=== PATIENT | female | born 1990 | race Two or more races ===

== ENCOUNTER 2022-03-02 04:48 | Day surgery (SDC) | payer OTHER ==
[2022-02-28 13:42] VITALS: BMI 19.6
[2022-03-02] MEDS ORDERED: LIDOCAINE HCL/PF 1% SDV 5ML VIAL ONE (07:34)
[2022-03-02] MEDS ORDERED: DEXAMETHASONE SOD PHOSPHATE 10 MG/1 ML VIAL ONE (07:34)
[2022-03-02] MEDS ORDERED: IOHEXOL 180 MG/1 ML ML IJ ONE (09:48)
[2022-03-02] MEDS ORDERED: LIDOCAINE HCL 1% PRESERVATIVE FREE - 30ML VIAL IJ ONE (09:48)
[2022-03-02] MEDS ORDERED: DEXAMETHASONE SOD PHOSPHATE 10 MG/1 ML VIAL IM ONE (09:48)
[2022-03-02 10:40] VITALS: BP 101/68; PULSE 67; TEMP 98.8
== END 2022-03-02 10:35 | disposition home or self-care (01) ==
LOC: JASU-SURG 04:48
PROVIDERS: ATTEND Pain Medicine Pain Medicine
PROC: 3E0R33Z Introduction of Anti-inflammatory into Spinal Canal, Percutaneous Approach (ICD-10-PCS; 2022-03-02)
PROC: 3E0R3BZ Introduction of Anesthetic Agent into Spinal Canal, Percutaneous Approach (ICD-10-PCS; principal; 2022-03-02 08:45)
DX: M54.16 Radiculopathy, lumbar region (principal)
CPT/HCPCS: 76000-TC-FY; 81025; J1100

== ENCOUNTER 2023-09-07 11:40 | Inpatient (IN) | payer OTHER ==
[2023-09-07] MEDS: ELECTROLYTE-148 SOLN 1,000 ML IV SCH (12:45)
[2023-09-07 12:51] VITALS: BMI 22.8
[2023-09-07] MEDS: CITRIC ACID/SODIUM CITRATE 30 ML UNIT-DOSE CUP PO ONE (13:30)
[2023-09-07] MEDS ORDERED: OXYTOCIN 30 UNITS in 0.9% NS 30 UNIT/500 ML INFUS.BAG IVPB ONE (13:43)
[2023-09-07] MEDS ORDERED: FENTANYL CITRATE/PF 50 MCG/ML VIAL ONE (13:45)
[2023-09-07] MEDS ORDERED: morphine SULFATE/PF 1 MG/2 ML (2cc Syringe - QUVA) ONE (13:45)
[2023-09-07] MEDS ORDERED: IBUPROFEN 600 MG TABLET (FP) PO PRN (13:51)
[2023-09-07] MEDS ORDERED: ACETAMINOPHEN 325 MG TABLET (FP) PO PRN (13:51)
[2023-09-07] MEDS ORDERED: PHENYLEPHRINE HCL 10 MG/1 ML SINGLE DOSE VIAL ONE (14:07)
[2023-09-07] MEDS ORDERED: ceFAZolin SODIUM 1 GM VIAL ONE ×2 (14:12)
[2023-09-07] MEDS ORDERED: ONDANSETRON 4 MG/2 ML VIAL ONE ×2 (14:12)
[2023-09-07 14:26] LABS: BASO % 0.7 % (0-2.0); EOS % 0.5 % (0-4.5); HEMATOCRIT 32.9 % (32.4-45.2); HEMOGLOBIN 11.3 GM/dL (10.7-15.3); LYMPH % 12.5 % (8-40); MCH 30.6 pg (25.7-33.7); MCHC 34.2 g/dl (32.0-36.0); MEAN CELL VOLUME 89.4 fl (80-96); MEAN PLT VOLUME 8.6 fl (7.5-11.1); MONO % 8.6 % (3.8-10.2); NEUT % 77.7 % (42.8-82.8); PLATELET COUNT 303 10^3/uL (134-434); RBC 3.68 M/mm3 (3.60-5.2); RDW 12.7 % (11.6-15.6); WHITE BLOOD COUNT 8.3 K/mm3 (4.0-10.0)
[2023-09-07 14:30] LABS: INR 0.99 (0.83-1.09); PROTHROMBIN TIME (PATIENT) 11.5 SEC (9.7-13.0)
[2023-09-07 14:33] LABS: ACTIVATED PTT 27.8 SECONDS (25.2-36.5)
[2023-09-07 14:49] LABS: POTASSIUM 3.8 mmol/L (3.5-5.1)
[2023-09-07 14:51] LABS: CALCIUM 8.5 mg/dL (8.5-10.1)
[2023-09-07 14:55] LABS: CREATININE 0.5 mg/dL (0.55-1.3)
[2023-09-07 15:08] LABS: CORD BASE EXCESS -4.4 mmol/L (0-2); CORD HCO3 21.3 mmHg (20-29); CORD PCO2 41.7 mmHg (30-78); CORD pH 7.327 (7.14-7.44)
[2023-09-07 15:10] LABS: CORD pH 7.265 (7.14-7.44)
[2023-09-07] MEDS ORDERED: METHYLERGONOVINE MALEATE 0.2 MG/1 ML AMP IM PRN (15:33)
[2023-09-07 15:45] LABS: HIV INTERPRETATION NEGATIVE (NEGATIVE)
[2023-09-07] MEDS ORDERED: OXYTOCIN 20 UNITS in 0.9% NS 20 UNIT/1,000 ML INFUS.BAG IV ONE (16:58)
[2023-09-07] MEDS: ONDANSETRON 4 MG/2 ML VIAL IVPUSH PRN (17:00)
[2023-09-07] MEDS: OXYTOCIN 20 UNITS in 0.9% NS 20 UNIT/1,000 ML INFUS.BAG IV SCH (17:00)
[2023-09-07 18:28] VITALS: RESP 18
[2023-09-07] MEDS: ACETAMINOPHEN 1000 MG/100 ML BAG IVPB PRN (20:59)
[2023-09-08] MEDS ORDERED: oxyCODONE HCL 5 MG TABLET PO PRN ×2 (03:34)
[2023-09-08] MEDS: SIMETHICONE 80 MG TAB.CHEW (FP) PO PRN (03:47)
[2023-09-08] MEDS: IBUPROFEN 600 MG TABLET (FP) PO PRN (03:48)
[2023-09-08 08:41] LABS: BASO % 0.4 % (0-2.0); EOS % 0.2 % (0-4.5); HEMATOCRIT 24.4 % (32.4-45.2); HEMOGLOBIN 8.3 GM/dL (10.7-15.3); LYMPH % 20.6 % (8-40); MCH 30.4 pg (25.7-33.7); MEAN CELL VOLUME 89.4 fl (80-96); MEAN PLT VOLUME 7.8 fl (7.5-11.1); MONO % 9.5 % (3.8-10.2); NEUT % 69.3 % (42.8-82.8); PLATELET COUNT 231 10^3/uL (134-434); RBC 2.73 M/mm3 (3.60-5.2); RDW 12.6 % (11.6-15.6); WHITE BLOOD COUNT 8.8 K/mm3 (4.0-10.0)
[2023-09-08] MEDS: FLU VACCINE (FLULAVAL) PF 60 MCG/0.5 ML SYRINGE 2023-2024 IM ONE (10:56)
[2023-09-08] MEDS: ACETAMINOPHEN 325 MG TABLET (FP) PO PRN (10:57)
[2023-09-08] MEDS: FERROUS SO4 325 MG TABLET (FP) PO SCH (17:38)
[2023-09-08] MEDS: ACETAMINOPHEN/CAFFEINE/BUTALBITAL 1 TAB PO PRN (22:34)
[2023-09-09] MEDS: BISACODYL 10 MG SUPP.RECT RC PRN (05:42)
[2023-09-09 10:20] LABS: BASO % 0.2 % (0-2.0); EOS % 0.1 % (0-4.5); HEMATOCRIT 25.7 % (32.4-45.2); LYMPH % 16.7 % (8-40); MCH 30.7 pg (25.7-33.7); MCHC 34.8 g/dl (32.0-36.0); MEAN CELL VOLUME 88.2 fl (80-96); MEAN PLT VOLUME 7.9 fl (7.5-11.1); MONO % 6.1 % (3.8-10.2); NEUT % 76.9 % (42.8-82.8); PLATELET COUNT 288 10^3/uL (134-434); RBC 2.92 M/mm3 (3.60-5.2); RDW 13.2 % (11.6-15.6); WHITE BLOOD COUNT 11.4 K/mm3 (4.0-10.0)
[2023-09-09] MEDS ORDERED: IBUPROFEN 600 MG TABLET (FP) PO PRN (12:46)
[2023-09-09] MEDS: CEFTRIAXONE 2 GM in DEXTROSE 5%-WATER 100 ML IVPB SCH (14:33)
[2023-09-09] MEDS: IBUPROFEN 400 MG TABLET (FP) PO PRN (17:25)
[2023-09-10 07:46] LABS: BASO % 0.6 % (0-2.0); EOS % 1.4 % (0-4.5); HEMATOCRIT 24.8 % (32.4-45.2); HEMOGLOBIN 8.6 GM/dL (10.7-15.3); LYMPH % 21.2 % (8-40); MCH 31.2 pg (25.7-33.7); MCHC 34.6 g/dl (32.0-36.0); MEAN CELL VOLUME 89.9 fl (80-96); MEAN PLT VOLUME 7.5 fl (7.5-11.1); MONO % 6.6 % (3.8-10.2); NEUT % 70.2 % (42.8-82.8); PLATELET COUNT 299 10^3/uL (134-434); RBC 2.76 M/mm3 (3.60-5.2); RDW 12.9 % (11.6-15.6); WHITE BLOOD COUNT 9.2 K/mm3 (4.0-10.0)
[2023-09-10 09:54] VITALS: BP 115/76; PULSE 62; TEMP 98.2
[2023-09-10] MEDS ORDERED: AMOX TR/POT CLAV 875MG/125MG TABLETS (FP) PO ONE (17:11)
== END 2023-09-10 17:20 | disposition home or self-care (01) | DRG 540 ==
LOC: JDEL 11:40 → JLDR 12:15 → J3W 17:45
PROVIDERS: ADMIT Family Medicine; ATTEND Family Medicine
PROC: 10D00Z1 Extraction of Products of Conception, Low, Open Approach (ICD-10-PCS; principal; 2023-09-07)
DX: O34.211 Maternal care for low transverse scar from previous cesarean delivery (principal); N85.8 Other specified noninflammatory disorders of uterus; O99.02 Anemia complicating childbirth; Z3A.38 38 weeks gestation of pregnancy; Z37.0 Single live birth
CPT/HCPCS: 36415; 36600; 70450-TC; 80048; 82803; 85025; 85610; 85730; 86780; 86850; 86900; 86901; 87389; 88307-TC; 90686; G0008; J0131